=== PATIENT | female | born 1990 | race Caucasian/White ===

== ENCOUNTER 2016-07-15 11:58 | Emergency (ER) | payer SELFPAY ==
[2016-07-15] MEDS ORDERED: BUPIVACAINE HCL 0.5 % INJ/PF 30 ML SDV INJ ONE (12:37)
--- NOTE | 2016-07-15 12:41 | ER Document Report ---
ED Medical Screen (RME) - General Chief Complaint: Toothache Stated Complaint: TOOTH PAIN,NAUSEA Notes: Patient is a 26-year-old female presents to emergency department of nasal drainage, body aches for the past 2 days but also new onset tooth ache this morning. Patient states that she's had these past couple symptoms with fevers at night for the past couple of days to sick kids at home. She did not receive a flu vaccine this year. She also states that she woke up this morning with severe right lower tooth pain around tooth 29 and 30. Patient states that she know she has awful dentition and that she needs follow-up with a dentist. Patient states that she has plans to follow up with a dentist in [place] and is working out a payment plan to have her teeth pulled. Patient denies any drug use She denies any difficulty opening her jaw, dysphasia swelling, foul odor or drainage. Denies any past medical history. Denies any drug allergies TRAVEL OUTSIDE OF THE [place] IN LAST 30 DAYS: No - Related Data Allergies/Adverse Reactions: No Known Allergies Allergy (Unverified 05/25/16 15:31) Past Medical History - General Information source: Patient Review of Systems - Review of Systems Constitutional: See HPI EENT: See HPI Cardiovascular: No symptoms reported Respiratory: No symptoms reported Gastrointestinal: No symptoms reported Genitourinary: No symptoms reported Female Genitourinary: No symptoms reported Musculoskeletal: See HPI Skin: No symptoms reported Hematologic/Lymphatic: No symptoms reported Neurological/Psychological: No symptoms reported Physical Exam - Vital signs Vitals: Temp Pulse Resp BP Pulse Ox 98.0 F 94 16 126/76 H 100 07/15/16 12:04 07/15/16 12:04 07/15/16 12:04 07/15/16 12:04 07/15/16 12:04 - General General appearance: Appears well, Alert In distress: Mild - HEENT Head: Normocephalic Eyes: Normal Conjunctiva: Normal Pupils: PERRL Ears: Normal Nasal: Clear rhinorrhea Mouth/Lips: Normal Mucous membranes: Normal Teeth diagram: 1 - generalized dental caries on majority of teeth but tenderness along gums here. no evidence of abscess or swelling Pharynx: Normal, Post nasal drainage. No: Erythema, Exudate, Peritonsillar abscess, Retropharyngeal abscess Neck: Normal, Other - No evidence of Rafi angina. No: Anterior cervical chain , Posterior cervical chain, Neck mass - Respiratory Respiratory status: No respiratory distress Chest status: Nontender Breath sounds: Normal Chest palpation: Normal - Cardiovascular Rhythm: Regular Heart sounds: Normal auscultation, S1 appreciated, S2 appreciated - Neurological Neuro grossly intact: Yes Cognition: Normal Orientation: AAOx4 [place] Coma Scale Eye Opening: Spontaneous [place] Coma Scale Verbal: Oriented [place] Coma Scale Motor: Obeys Commands [place] Coma Scale Total: 15 Course - Re-evaluation Re-evalutation: 07/15/16 12:49 Patient with inflammatio around surrounding dental caries. Patient received dental block using o.5% sensorcaine 6ml intrabuccal with complete resolution of her pain. will d/c home wiht ocn vk and PO pain medications adn instruction to f/u with a dentist in 10 days influenza negative, likely viral URI - Vital Signs Vital signs: Temp Pulse Resp BP Pulse Ox 98.0 F 94 16 126/76 H 100 07/15/16 12:04 07/15/16 12:04 07/15/16 12:04 07/15/16 12:04 07/15/16 12:04 Doctor's Discharge - Discharge Clinical Impression: Tooth ache, Nasal drainage Condition: Good Disposition: HOME, SELF-CARE Instructions: Toothache ([facility]), Oral Narcotic Medication ([facility]), Penicillin V K ( [facility]) Additional Instructions: Please be sure to follow up with a dentist in 10 days to evaluate your teeth Prescriptions: Hydrocodone/Acetaminophen [[place] 5-325 mg Tablet] 1 tab PO Q6HP PRN #15 tablet PRN Reason: Penicillin V Potassium [Penicillin Vk 500 mg Tablet] 500 mg PO BID #20 tablet
[2016-07-15] MEDS ORDERED: ONDANSETRON 4 MG TAB.RAPDIS PO ONE (12:44)
[2016-07-15 14:06] VITALS: BP 117/77
== END 2016-07-15 14:00 | disposition home or self-care (01) ==
LOC: ER 11:58
DX: K08.89 Other specified disorders of teeth and supporting structures (principal); R11.0 Nausea; R52 Pain, unspecified
CPT/HCPCS: 99283; 87804; S0119